=== PATIENT | male | born 1980 | race Hispanic/Latino ===

== ENCOUNTER 2017-03-28 09:46 | Day surgery (SDC) | payer OTHER ==
[~2017-03-28] VITALS: Ht 200.7 cm; Wt 75.0 kg
[~2017-03-28 09:46] MED LIST: ENDOCET 5-3251 EACH PO
[2017-03-28 10:46] VITALS: BP 118/70
[2017-03-28 17:55] VITALS: BP 141/68
[2017-03-28 19:35] VITALS: BP 129/76
[2017-03-28 23:11] VITALS: BP 134/71
[2017-03-29 03:48] VITALS: BP 131/78
[2017-03-29 08:00] VITALS: BP 130/80
[2017-03-29] MEDS ORDERED: ASPIR-LOW81 MG PO (09:10)
[2017-03-29] MEDS ORDERED: ENDOCET 5-3251 EACH PO (09:12)
== END 2017-03-29 12:27 | disposition home or self-care (01) ==
LOC: SDC 09:46 → 2SOUTH 15:05 → 3EAST 15:05 → ENRESERV 15:26 → SDC 16:03 → ENRESERV 16:12 → 3EAST 17:39
DX: S92.061A Displaced intraarticular fracture of right calcaneus, initial encounter for closed fracture (principal); X58.XXXA Exposure to other specified factors, initial encounter
CPT/HCPCS: 71010; 73650; 76000; C1713; G0378; J0131; J0330; J0690; J1100; J1170; J2175; J2250; J2405; J3010; J7120